=== PATIENT | male | born 1965 | race Caucasian/White ===

== ENCOUNTER 2016-07-15 16:07 | Inpatient (IN) | payer OTHER ==
[~2016-07-15] VITALS: Ht 167.6 cm; Wt 96.4 kg
[2016-07-15 17:39] LABS: BASOPHIL % 0.6 % (0-2); PLATELET COUNT 307 x10^3mcL (130-400); RED CELL DISTRIBUTION WIDTH 13.7 % (11.5-14.5)
[2016-07-15 18:00] LABS: ALBUMIN 3.5 g/dL (3.4-5.0); ALKALINE PHOSPHATASE 127 U/L (46-116); ALT/SGPT 20 U/L (16-63); AST/SGOT 10 U/L (15-37); BILIRUBIN TOTAL 0.53 mg/dL (0.20-1.00); CALCIUM 9.9 mg/dL (8.5-10.1); CARBON DIOXIDE 21.6 mmol/L (21-32); CHLORIDE SERUM 91 mmol/L (98-107); CREATININE SERUM 1.3 mg/dL (0.7-1.3); GFR1 > 60 mL/min; MAGNESIUM 2.4 mg/dL (1.8-2.4); SODIUM SERUM 128 mmol/L (136-145); TOTAL PROTEIN, SERUM 8.8 g/dL (6.4-8.2)
[2016-07-15 18:01] LABS: GLUCOSE SERUM 632 mg/dL (74-106)
[2016-07-15 18:34] LABS: microscopic required? YES; urine erythrocyte TRACE (NEGATIVE)
[2016-07-15] MEDS ORDERED: LOSARTAN POTASS50 M1 PO (18:34)
[2016-07-15] MEDS ORDERED: NOR10T PO (18:34)
[2016-07-15] MEDS ORDERED: DICLOFENAC SODI50 MG PO (18:35)
[2016-07-15] MEDS ORDERED: TRAMADOL HCL50 MG PO (18:35)
[2016-07-15] MEDS ORDERED: CYCLOBENZAPRINE5 MG PO (18:36)
[2016-07-15] MEDS ORDERED: NEU300 PO (18:36)
[2016-07-15 20:30] VITALS: BP 155/90
[2016-07-16 00:58] LABS: CALCIUM 8.7 mg/dL (8.5-10.1); CARBON DIOXIDE 23.9 mmol/L (21-32); CHLORIDE SERUM 104 mmol/L (98-107); GFR1 > 60 mL/min; GLUCOSE SERUM 300 mg/dL (74-106); POTASSIUM SERUM 4.2 mmol/L (3.5-5.1); SODIUM SERUM 136 mmol/L (136-145)
[2016-07-16 06:22] VITALS: BP 111/56
[2016-07-16 07:05] LABS: BASOPHIL % 0.4 % (0-2); PLATELET COUNT 255 x10^3mcL (130-400); RED CELL DISTRIBUTION WIDTH 13.6 % (11.5-14.5)
[2016-07-16 07:13] LABS: ALKALINE PHOSPHATASE 83 U/L (46-116); ALT/SGPT 14 U/L (16-63); AST/SGOT 12 U/L (15-37); BILIRUBIN TOTAL 0.32 mg/dL (0.20-1.00); CALCIUM 8.7 mg/dL (8.5-10.1); CHLORIDE SERUM 108 mmol/L (98-107); CREATININE SERUM 0.7 mg/dL (0.7-1.3); GFR1 > 60 mL/min; GLUCOSE SERUM 127 mg/dL (74-106); POTASSIUM SERUM 3.8 mmol/L (3.5-5.1); SODIUM SERUM 140 mmol/L (136-145); TOTAL PROTEIN, SERUM 6.7 g/dL (6.4-8.2)
[2016-07-16 07:14] LABS: ALBUMIN 2.7 g/dL (3.4-5.0)
[2016-07-16 09:22] VITALS: BP 136/78
[2016-07-16 09:58] LABS: CALCIUM 8.7 mg/dL (8.5-10.1); CARBON DIOXIDE 24.9 mmol/L (21-32); CHLORIDE SERUM 105 mmol/L (98-107); CREATININE SERUM 0.9 mg/dL (0.7-1.3); GFR1 > 60 mL/min; GLUCOSE SERUM 324 mg/dL (74-106); POTASSIUM SERUM 3.9 mmol/L (3.5-5.1); SODIUM SERUM 140 mmol/L (136-145)
[2016-07-16 12:58] VITALS: BP 141/95
[2016-07-16 17:49] VITALS: BP 143/85
[2016-07-16 21:23] VITALS: BP 129/68
[2016-07-17 05:43] VITALS: BP 132/76
[2016-07-17 05:48] LABS: CALCIUM 8.9 mg/dL (8.5-10.1); CARBON DIOXIDE 27.8 mmol/L (21-32); CHLORIDE SERUM 105 mmol/L (98-107); CREATININE SERUM 0.7 mg/dL (0.7-1.3); GFR1 > 60 mL/min; GLUCOSE SERUM 140 mg/dL (74-106); POTASSIUM SERUM 3.6 mmol/L (3.5-5.1); SODIUM SERUM 140 mmol/L (136-145)
[2016-07-17 10:54] VITALS: BP 122/66
[2016-07-17 11:30] VITALS: BP 122/66
== END 2016-07-17 14:30 | disposition home or self-care (01) | DRG 420 ==
LOC: ED 16:07 → DU 18:46
PROVIDERS: Emergency Medicine; Internal Medicine Pulmonary Disease; ADMIT Internal Medicine
DX: E13.10 Other specified diabetes mellitus with ketoacidosis without coma (principal); I10 Essential (primary) hypertension; E11.65 Type 2 diabetes mellitus with hyperglycemia; M19.90 Unspecified osteoarthritis, unspecified site
CPT/HCPCS: 82962; 83880; J1650; J1815; J7030

== ENCOUNTER 2016-10-11 06:32 | Day surgery (SDC) | payer OTHER ==
[~2016-10-11] VITALS: Ht 167.6 cm; Wt 97.5 kg
[~2016-10-11 06:32] MED LIST: CYCLOBENZAPRINE5 MG PO; DICLOFENAC SODI50 MG PO; LOSARTAN POTASS50 M1 PO; NEU300 PO; NOR10T PO; TRAMADOL HCL50 MG PO
[2016-10-11 07:05] VITALS: BP 111/76
[2016-10-11 09:01] VITALS: BP 127/67
== END 2016-10-11 10:30 | disposition home or self-care (01) ==
LOC: DS 06:32 → OR 07:30 → GI 07:30 → DS 10:30
PROVIDERS: Internal Medicine Gastroenterology
PROC: 0DJD8ZZ Inspection of Lower Intestinal Tract, Via Natural or Artificial Opening Endoscopic (ICD-10-PCS; principal; 2016-10-11 07:30)
DX: Z12.11 Encounter for screening for malignant neoplasm of colon (principal); E11.9 Type 2 diabetes mellitus without complications; K64.8 Other hemorrhoids; E66.9 Obesity, unspecified; Z68.33 Body mass index [BMI] 33.0-33.9, adult; Z96.659 Presence of unspecified artificial knee joint
CPT/HCPCS: 45378; J1200; J1610; J2250; J2310; J3010; J3490

== ENCOUNTER 2017-02-26 10:27 | Emergency (ER) | payer OTHER ==
[~2017-02-26] VITALS: Ht 170.2 cm; Wt 101.6 kg
[2017-02-26 10:33] VITALS: Ht 170.2 cm; Wt 101.6 kg
[2017-02-26 12:39] VITALS: BP 139/79
== END 2017-02-26 12:39 | disposition home or self-care (01) ==
LOC: ED 10:27
DX: R10.13 Epigastric pain (principal); R11.2 Nausea with vomiting, unspecified; R19.7 Diarrhea, unspecified
CPT/HCPCS: J2405; J7030

== ENCOUNTER 2019-04-21 05:12 | Emergency (ER) | payer OTHER ==
[~2019-04-21] VITALS: Ht 170.2 cm; Wt 90.4 kg
[2019-04-21 05:38] VITALS: Ht 170.2 cm; Wt 90.4 kg
[2019-04-21 06:48] LABS: CALCIUM 9.4 mg/dL (8.5-10.1); CARBON DIOXIDE 25.5 mmol/L (21-32); CHLORIDE SERUM 98 mmol/L (98-107); CREATININE SERUM 0.9 mg/dL (0.7-1.3); GFR1 > 60 mL/min; GLUCOSE SERUM 382 mg/dL (74-106); POTASSIUM SERUM 4.2 mmol/L (3.5-5.1); SODIUM SERUM 134 mmol/L (136-145)
[2019-04-21 06:52] LABS: ALBUMIN 3.7 g/dL (3.4-5.0); ALKALINE PHOSPHATASE 85 U/L (46-116); ALT/SGPT 29 U/L (16-63); AMYLASE 31 U/L (25-115); AST/SGOT 12 U/L (15-37); BILIRUBIN TOTAL 0.8 mg/dL (0.20-1.00); LIPASE 257 IU/L (73-393); TOTAL PROTEIN, SERUM 7.8 g/dL (6.4-8.2)
[2019-04-21 07:11] LABS: BASOPHIL % 0.4 % (0-2); PLATELET COUNT 205 x10^3mcL (130-400); RED CELL DISTRIBUTION WIDTH 12.1 % (11.5-14.5)
[2019-04-21 09:35] VITALS: BP 138/84
[2019-04-21] MEDS ORDERED: ATORVASTATIN CA40 M1 PO (22:32)
[2019-04-21] MEDS ORDERED: OZEMPIC1 MG/0.75 SQ (22:32)
[2019-04-21] MEDS ORDERED: FORTAMET1000 MG PO (22:33)
== END 2019-04-21 09:35 | disposition home or self-care (01) ==
LOC: ED 05:12
PROVIDERS: Emergency Medicine
DX: K29.70 Gastritis, unspecified, without bleeding (principal); E11.65 Type 2 diabetes mellitus with hyperglycemia; E78.00 Pure hypercholesterolemia, unspecified
CPT/HCPCS: 82962; J1815; J7030

== ENCOUNTER 2019-04-21 19:35 | Inpatient (IN) | payer OTHER ==
[~2019-04-21] VITALS: Ht 172.7 cm; Wt 90.7 kg
[2019-04-21 19:37] VITALS: Ht 172.7 cm; Wt 90.7 kg
[2019-04-21 21:14] LABS: BASOPHIL % 0.3 % (0-2); PLATELET COUNT 211 x10^3mcL (130-400); RED CELL DISTRIBUTION WIDTH 12.4 % (11.5-14.5)
[2019-04-21 21:45] LABS: CALCIUM 9.1 mg/dL (8.5-10.1); CARBON DIOXIDE 26.2 mmol/L (21-32); CHLORIDE SERUM 100 mmol/L (98-107); CREATININE SERUM 0.8 mg/dL (0.7-1.3); GFR1 > 60 mL/min; GLUCOSE SERUM 328 mg/dL (74-106); POTASSIUM SERUM 4.1 mmol/L (3.5-5.1); SODIUM SERUM 135 mmol/L (136-145)
[2019-04-21 21:49] LABS: ALBUMIN 3.5 g/dL (3.4-5.0); ALKALINE PHOSPHATASE 78 U/L (46-116); ALT/SGPT 22 U/L (16-63); AST/SGOT 11 U/L (15-37); BILIRUBIN TOTAL 0.69 mg/dL (0.20-1.00); LIPASE 193 IU/L (73-393); TOTAL PROTEIN, SERUM 7.5 g/dL (6.4-8.2)
[2019-04-21] MEDS ORDERED: ATORVASTATIN CA40 M1 PO (22:32)
[2019-04-21] MEDS ORDERED: OZEMPIC1 MG/0.75 SQ (22:32)
[2019-04-21] MEDS ORDERED: FORTAMET1000 MG PO (22:33)
[2019-04-22] VITALS (7 sets, daily range): BP systolic 115–179; BP diastolic 64–92
[2019-04-22 07:24] LABS: CALCIUM 8.6 mg/dL (8.5-10.1); CARBON DIOXIDE 22.7 mmol/L (21-32); CHLORIDE SERUM 100 mmol/L (98-107); CREATININE SERUM 0.8 mg/dL (0.7-1.3); GFR1 > 60 mL/min; GLUCOSE SERUM 267 mg/dL (74-106); MAGNESIUM 1.9 mg/dL (1.8-2.4); POTASSIUM SERUM 4.2 mmol/L (3.5-5.1); SODIUM SERUM 134 mmol/L (136-145)
[2019-04-22 07:32] LABS: BASOPHIL % 0.2 % (0-2); PLATELET COUNT 208 x10^3mcL (130-400); RED CELL DISTRIBUTION WIDTH 12.2 % (11.5-14.5)
[2019-04-23 05:49] LABS: BASOPHIL % 0.1 % (0-2); PLATELET COUNT 199 x10^3mcL (130-400); RED CELL DISTRIBUTION WIDTH 12.5 % (11.5-14.5)
[2019-04-23 06:06] VITALS: BP 103/53
[2019-04-23 06:32] LABS: ALKALINE PHOSPHATASE 64 U/L (46-116); ALT/SGPT 106 U/L (16-63); AST/SGOT 119 U/L (15-37); BILIRUBIN TOTAL 0.6 mg/dL (0.20-1.00); CALCIUM 8.5 mg/dL (8.5-10.1); CARBON DIOXIDE 24.6 mmol/L (21-32); CHLORIDE SERUM 102 mmol/L (98-107); CREATININE SERUM 0.8 mg/dL (0.7-1.3); GFR1 > 60 mL/min; GLUCOSE SERUM 249 mg/dL (74-106); MAGNESIUM 1.9 mg/dL (1.8-2.4); POTASSIUM SERUM 4.2 mmol/L (3.5-5.1); SODIUM SERUM 134 mmol/L (136-145); TOTAL PROTEIN, SERUM 6.6 g/dL (6.4-8.2)
[2019-04-23 06:43] LABS: ALBUMIN 2.7 g/dL (3.4-5.0)
[2019-04-23 08:14] VITALS: BP 114/63
[2019-04-23] MEDS ORDERED: CIPRO500 MG PO (10:00)
[2019-04-23] MEDS ORDERED: FLAGYL500 MG PO (10:01)
[2019-04-23 10:55] VITALS: BP 114/63
[2019-04-23 13:07] VITALS: BP 133/63
== END 2019-04-23 16:09 | disposition home or self-care (01) | DRG 263 ==
LOC: ED 19:35 → MU 23:54
PROVIDERS: Emergency Medicine; Internal Medicine Pulmonary Disease; Surgery; ADMIT Internal Medicine Pulmonary Disease
PROC: 0FT44ZZ Resection of Gallbladder, Percutaneous Endoscopic Approach (ICD-10-PCS; principal; 2019-04-22 13:30)
DX: K81.0 Acute cholecystitis (principal); E11.65 Type 2 diabetes mellitus with hyperglycemia; I10 Essential (primary) hypertension; Z79.84 Long term (current) use of oral hypoglycemic drugs; E78.00 Pure hypercholesterolemia, unspecified; E78.5 Hyperlipidemia, unspecified
CPT/HCPCS: 78226; 82962; 94150; A9537; G0378; J0330; J0694; J1170; J2001; J2270; J2405; J2543; J2704; J2710; J3010; J3490; J7030; J7042; Q0092; Q0162

== ENCOUNTER 2019-04-26 20:51 | Inpatient (IN) | payer OTHER ==
[~2019-04-26] VITALS: Ht 170.2 cm; Wt 83.5 kg
[~2019-04-26 20:51] MED LIST changes: +ATORVASTATIN CA40 M1 PO; +CIPRO500 MG PO; +FLAGYL500 MG PO; +FORTAMET1000 MG PO; +OZEMPIC1 MG/0.75 SQ
[2019-04-26 20:56] VITALS: Ht 170.2 cm; Wt 83.5 kg
[2019-04-26 21:23] LABS: BASOPHIL % 0.4 % (0-2); RED CELL DISTRIBUTION WIDTH 12.1 % (11.5-14.5)
[2019-04-26 21:27] LABS: PLATELET COUNT 414 x10^3mcL (130-400)
[2019-04-26 21:31] LABS: CALCIUM 9.3 mg/dL (8.5-10.1); CARBON DIOXIDE 24.8 mmol/L (21-32); CHLORIDE SERUM 95 mmol/L (98-107); CREATININE SERUM 0.9 mg/dL (0.7-1.3); GFR1 > 60 mL/min; GLUCOSE SERUM 321 mg/dL (74-106); POTASSIUM SERUM 4.3 mmol/L (3.5-5.1); SODIUM SERUM 133 mmol/L (136-145)
[2019-04-26 21:36] LABS: ALKALINE PHOSPHATASE 65 U/L (46-116); ALT/SGPT 49 U/L (16-63); AST/SGOT 16 U/L (15-37); BILIRUBIN TOTAL 0.5 mg/dL (0.20-1.00); LIPASE 193 IU/L (73-393); TOTAL PROTEIN, SERUM 7.9 g/dL (6.4-8.2)
[2019-04-26 21:41] LABS: ALBUMIN 2.6 g/dL (3.4-5.0)
[2019-04-27 02:42] LABS: UA SPECIFIC GRAVITY >=1.030 (1.005-1.035); microscopic required? YES; urine erythrocyte NEGATIVE (NEGATIVE)
[2019-04-27 04:26] VITALS: BP 140/71
[2019-04-27 08:26] VITALS: BP 122/72
[2019-04-27 14:13] VITALS: BP 128/76
[2019-04-27 16:51] VITALS: BP 112/73
[2019-04-27 21:37] VITALS: BP 117/70
[2019-04-28 04:50] VITALS: BP 94/55
[2019-04-28 07:28] VITALS: BP 112/68
[2019-04-28 07:57] LABS: BASOPHIL % 0.5 % (0-2); PLATELET COUNT 367 x10^3mcL (130-400); RED CELL DISTRIBUTION WIDTH 12.6 % (11.5-14.5)
[2019-04-28 08:19] LABS: CALCIUM 9.2 mg/dL (8.5-10.1); CHLORIDE SERUM 103 mmol/L (98-107); CREATININE SERUM 0.7 mg/dL (0.7-1.3); GFR1 > 60 mL/min; GLUCOSE SERUM 155 mg/dL (74-106); SODIUM SERUM 138 mmol/L (136-145)
[2019-04-28 12:13] VITALS: BP 120/70
[2019-04-28 13:11] LABS: BASOPHIL % 0.8 % (0-2); RED CELL DISTRIBUTION WIDTH 12.4 % (11.5-14.5)
[2019-04-28 13:12] LABS: PLATELET COUNT 405 x10^3mcL (130-400)
[2019-04-28 16:08] VITALS: BP 104/60
[2019-04-28 20:02] VITALS: BP 108/64
[2019-04-29 05:47] VITALS: BP 114/79
[2019-04-29 07:46] VITALS: BP 126/72
[2019-04-29 10:45] LABS: BASOPHIL % 0.8 % (0-2); RED CELL DISTRIBUTION WIDTH 12.1 % (11.5-14.5)
[2019-04-29 10:46] LABS: PLATELET COUNT 428 x10^3mcL (130-400)
[2019-04-29 10:50] VITALS: BP 126/72
[2019-04-29 11:14] LABS: CALCIUM 9.2 mg/dL (8.5-10.1); CARBON DIOXIDE 29.1 mmol/L (21-32); CHLORIDE SERUM 102 mmol/L (98-107); CREATININE SERUM 0.8 mg/dL (0.7-1.3); GFR1 > 60 mL/min; GLUCOSE SERUM 258 mg/dL (74-106); SODIUM SERUM 138 mmol/L (136-145)
[2019-04-29 11:19] LABS: ALKALINE PHOSPHATASE 67 U/L (46-116); ALT/SGPT 36 U/L (16-63); AST/SGOT 24 U/L (15-37); BILIRUBIN TOTAL 0.3 mg/dL (0.20-1.00); TOTAL PROTEIN, SERUM 7.3 g/dL (6.4-8.2)
[2019-04-29 11:20] LABS: ALBUMIN 2.6 g/dL (3.4-5.0)
== END 2019-04-29 11:24 | disposition home or self-care (01) | DRG 247 ==
LOC: ED 20:51 → MU 04-27 03:33
PROVIDERS: Emergency Medicine; Hospitalist; ADMIT Internal Medicine Pulmonary Disease
DX: K56.7 Ileus, unspecified (principal); E11.40 Type 2 diabetes mellitus with diabetic neuropathy, unspecified; K56.609 Unspecified intestinal obstruction, unspecified as to partial versus complete obstruction; E78.5 Hyperlipidemia, unspecified; F32.9 Major depressive disorder, single episode, unspecified; K21.9 Gastro-esophageal reflux disease without esophagitis; K92.1 Melena; E78.00 Pure hypercholesterolemia, unspecified; E11.65 Type 2 diabetes mellitus with hyperglycemia; Z90.49 Acquired absence of other specified parts of digestive tract; Z79.4 Long term (current) use of insulin
CPT/HCPCS: 82962; G0378; J1815; J2270; J2405; J3010; J7030; Q0092; Q9967